=== PATIENT | female | born 1950 | race Caucasian/White ===

== ENCOUNTER 2018-07-09 13:31 | Inpatient (IN) | payer OTHER ==
[~2018-07-09] VITALS: Ht 152.4 cm; Wt 50.8 kg
--- NOTE | ~2018-07-09 | H ---
[facility] [place] [address] HISTORY AND PHYSICAL Name: LAVINIA PULLIAM Room #: 418-P [facility] IN M.R.#: [id number] Admission: 07/09/18 Attend Phys: Damien Awad MD Discharge: 07/10/18 Date of : 50 Report #: [id number] THIS REPORT FOR: //name// CC: Shaq Awad DATE OF SERVICE: 07/09/2018 CHIEF COMPLAINT: Severe abdominal pain, nausea, vomiting and diarrhea. HISTORY OF PRESENT ILLNESS: The patient came to my office reporting a severe abdominal pain episode that began in the morning of 07/05/2018. The pain was described as being in the entire epigastric area, and at the same time also across the entire lower pelvic/suprapubic area. The pain is described as severe and burning. The pain would be quite a bit worse after eating. She had multiple loose stools. There would be times when she would be vomiting as far as even having dry heaves. Her solution was to stop eating, she reports she has not had anything to eat since 07/05/2018. Her weight in the office is low enough at 115. Several years ago, it was 130. In 2009, it was 158. Today, she weighs 112. Today, she says "I am so weak, I can hardly keep ongoing." Over the last several days, she has stopped eating, the pain and symptoms have improved steadily. She has had similar episodes of pain over the last several years. She has seen a palliative nurse, Dr. Shaq Clay for this. A CT scanning of the abdomen at various times has been abnormal; on 01/17/2016, she had antral mural thickening and luminal narrowing for a 2.5-cm segment and distal ileum thickening to 8 mm and narrowing for a 20 cm long segment. EGD on 03/08/[address] Clay showed mild localized gastritis in the antrum with the findings of edema and erythema. The duodenum and the rest of the EGD procedure were normal. Colonoscopy on the same day showed multiple diverticula and several polyps were snared and removed. Multiple diverticula were seen. The mention of the absence or presence of hemorrhoids was not included in the report. The pathology of the antral biopsy showed reactive gastropathy with focal intestinal metaplasia and the 2 proximal ascending colon polyps were tubular adenomas and the 2 hepatic flexure polyps were 1 sessile serrated adenoma and 1 tubular adenoma. Her symptoms this past week are similar to the symptoms she had several years ago leading to these procedures. PAST MEDICAL HISTORY: History of vascular disease with 70% carotid artery stenosis. She recently had a complete heart evaluation by Dr. Dawson Beavers because of chest discomfort and shortness of breath that was entirely normal. She had a large right-sided ovarian cyst and a remnant ovary removed and her [address] [address] HISTORY AND PHYSICAL Name: HERACLIOLAVINIA Room #: 418-P [facility] IN M.R.#: [id number] Admission: 07/09/18 Attend Phys: Damien Awad MD Discharge: 07/10/18 Date of : 50 Report #: [id number] appendix removed by Dr. 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 An abdominal hernia with obstruction and a right-sided inguinal hernia were repaired with mesh on 09/08/2014 at [facility]. OTHER PAST MEDICAL HISTORY: Hyperlipidemia, hypertension, symptomatic COPD, 90% right carotid artery stenosis, past history of TIA. REVIEW OF SYSTEMS: Negative except for the HPI, and some of her hair seems to be falling out. CURRENT MEDICATIONS: Dr. Beavers recently started olmesartan 40 mg and chlorthalidone 12.5 mg (possibly 1/2 of a 25 mg tablet) daily for high blood pressure. She continues 5000 units of vitamin D and 81 mg aspirin daily. She takes pravastatin 40 mg 1/2 tablet daily for hyperlipidemia and citalopram 40 mg daily. She has recently stopped lisinopril 20 mg twice daily and amlodipine 10 mg 1/2 tablet daily. ALLERGIES: None known. PHYSICAL EXAMINATION: GENERAL: Shows a 68-year-old woman who appears severely underweight. VITAL SIGNS: She weighs 112 pounds. Her body mass index is 17. HEENT: She appears dehydrated with loss of body fat along the facial structures. The oropharynx is dry. Rest of the HEENT exam is unremarkable. NECK: There is no adenopathy, thyromegaly or masses in the neck and no carotid bruits are present. CHEST: The lungs are clear. CARDIOVASCULAR: S1 and S2 are normal. The rhythm is regular. ABDOMEN: There is no organomegaly or masses on the abdominal examination. There is easily palpated midepigastric area abdominal aortic pulsation, that is possibly enlarged, but it is difficult to tell because of the lack of fatty tissue makes palpating structures in the abdomen very easy. There are no bruits present. The liver and spleen are normal to exam. Palpation over the epigastric area reproduces her discomfort, as does palpation over the lower pelvic areas, the suprapubic area, right and left to the iliac crests on both sides is tender to palpation. Bowel sounds are normal. EXTREMITIES: There is no clubbing, cyanosis or edema in the extremities. ASSESSMENT: 1. Abdominal pain, triggered by meals. 2. Nausea and vomiting, even to the point of some dry heaves over the last several days. 3. Diarrhea. [facility] [address] [place] [address] HISTORY AND PHYSICAL Name: LAVINIA PULLIAM Edy Room #: 418-P [facility] IN Michael.Bandar.#: [id number] Admission: 07/09/18 Attend Phys: Damien Awad MD Discharge: 07/10/18 Date of : 50 Report #: [id number] 4. Weight loss, on top of an already low body mass index. 5. Advanced chronic obstructive pulmonary disease. 6. Hypertension with blood pressure today of 145/71. 7. Dehydration and volume depletion. 8. Other medical problems as mentioned in history and physical. PLAN: Because of her continuing abdominal pain despite not eating anything for the last several days and progressive weight loss, an urgent hospitalization is indicated. She will be seen in GI consultation. An urgent CT scan of the abdomen and pelvis will be performed. IV fluids will be started and she will be given intravenous proton pump inhibitor. Additional history is that 6 weeks ago, she had bright red blood from her rectum - this history was elicited at the end of her visit in the office today. The bright red blood from the rectum at the time of having bowel movements stopped and so, she did not report it to her palliative nurse and did not report to me until just now. This is another indication for an urgent hospitalization. By: [id number] Damien Awad MD /nt
--- NOTE | ~2018-07-09 | H ---
[facility] [place] [address] HISTORY AND PHYSICAL Name: LAVINIA PULLIAM Room #: 418-P ADM IN M.R.#: [id number] Admission: 07/09/18 Attend Phys: Damien Awad MD Discharge: Date of : 50 Report #: [id number] THIS REPORT FOR: //name// CC: Damien Awad DATE OF SERVICE: 07/09/2018 CHIEF COMPLAINT: Abdominal pain, vomiting, diarrhea, and weight loss. HISTORY OF PRESENT ILLNESS: The patient reports beginning epigastric and lower stomach/upper pelvic area burning pain on 07/05/2018. She has had multiple loose stools. She has been vomiting and not able to keep her meals down. She has bright red blood on the toilet paper. She is losing weight. These symptoms "it is starting up again!" She saw Dr. Shaq Clay on 05/07/2018 for similar episode of symptoms with intermittent vomiting and diarrhea postprandially. At that time, it had been going on intermittently for about 6 months. An EGD and colonoscopy on 03/08/2016 was reviewed that showed focal intestinal metaplasia, H. pylori negative and on colonoscopy, she had 2 tubular adenomas and one sessile serrated adenoma in the colon. An EGD and colonoscopy were to be scheduled, but have not been done as of yet. There was a history of "ulcer" being documented on a CT scan of the abdomen; 01/17/2016 CT of the abdomen at [facility] actually did show multiple abnormalities of the stomach, small bowel, and colon as well as short segmental circumferential mural thickening and luminal thickening in the gastric antrum with about 2.5 cm segment with 2 cm of mural thickness. Terminal ileitis was also seen with long segmental circumferential mural thickening that was 8 mm in wall thickness and over 20 cm in length. Complicating the issue is back pain with facet arthropathy at multiple lumbar levels. She was admitted to [facility] 12/15/2016 for a TIA with numbness of the arm and shoulder pain on the left and visual loss also. 70% carotid stenosis was present with an MRI and MRA being negative. Her blood pressure was over 100. PAST MEDICAL HISTORY: Hypertension, COPD, prolonged. She continues to smoke a pack of cigarettes per day. History of elevated hemoglobin and hematocrit, hyperlipidemia, mucinous cystadenoma of the right ovary was removed with bilateral salpingo-oophorectomy 05/27/[address] [facility]. Vaginal hysterectomy approximately 30 years earlier. Incarcerated umbilical hernia resected for obstruction at [facility] in 2014. Left cervical radiculopathy 04/2017, as well as amaurosis fugax and identification of colon polyps with tubular adenoma and serrated adenoma as well. A recent nuclear cardiac stress test 06/25/[address] [address] HISTORY AND PHYSICAL Name: LAVINIA PULLIAM Room #: 418-P [facility] IN M.R.#: [id number] Admission: 07/09/18 Attend Phys: Damien Awad MD Discharge: Date of : 50 Report #: [id number] was negative. He added olmesartan 40 mg and chlorthalidone 12.5 mg daily to control her blood pressure. CURRENT MEDICATIONS: Olmesartan 40 mg daily, chlorthalidone 12.5 mg daily, vitamin D, baby aspirin 1 daily, pravastatin 40 mg one-half daily, and citalopram 40 mg daily. ALLERGIES: None known. FAMILY HISTORY: Noncontributory. SOCIAL HISTORY: She continues to smoke a pack of cigarettes daily as she has for many years. 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 She is . She does not use alcohol. OBJECTIVE: GENERAL: Examination shows an elderly female, who appears ill and uncomfortable in my office. HEENT: Unremarkable. The oropharynx is minimally dry, but dry nevertheless. NECK: There is no adenopathy or thyromegaly or masses or bruits in the neck. LUNGS: Markedly diminished, but clear. CARDIOVASCULAR: S1, S2 are normal. ABDOMEN: Mildly tender in the epigastric area, but it is soft and bowel sounds are normal. There is a second level of tenderness above the anterior superior spines of the pelvis. EXTREMITIES: There is no clubbing, cyanosis or edema. No focal neurological deficits present. She is able to ambulate freely. VITAL SIGNS: Her blood pressure in the office was 145/71, pulse of 72. Her weight has dropped from 115 to 112. ASSESSMENT: 1. Recurrent cluster of abdominal pain symptoms including burning in the epigastric and in the upper pelvic area. 2. Hypertension. 3. Weight loss. 4. Chronic obstructive pulmonary disease. 5. History of elevated hemoglobin and hematocrit. 6. Hyperlipidemia. PLAN: The patient is admitted at this time for intravenous fluids to assist with rehydration and returning her strength. CT scanning will be performed as soon as possible. Especially, consultation with Dr. Cohen, a partner of Dr. Clay who has been her GI doctor at [facility] for the last several years. Consideration for an EGD and/or colonoscopy tomorrow. The patient may also need [facility] [address] [place] [address] HISTORY AND PHYSICAL Name: LAVINIA PULLIAM Room #: 418-P [facility] IN M.R.#: [id number] Admission: 07/09/18 Attend Phys: Damien Awad MD Discharge: Date of : 50 Report #: [id number] arteriograms of the intraabdominal vasculature as intestinal ischemia may give similar symptoms. By: [id number] Damien Awad MD /nt
--- NOTE | ~2018-07-09 | D ---
[facility] [place] [address] DISCHARGE SUMMARY Name: LAVINIA PULLIAM Room #: 418-P [facility] IN .R.#: [id number] Admission: 07/09/18 Attend Phys: Damien Awad MD Discharge: 07/10/18 Date of : 50 Report #: [id number] THIS REPORT FOR: //name// CC: Damien Awad DATE OF SERVICE: 07/10/2018 SUMMARY OF HISTORY AND PHYSICAL: The patient presented to the office with a 5-day history of severe abdominal pain, diarrhea and vomiting with a weight loss measured by the office scales. She presented clinically dehydrated. She required admission for further evaluation and therapy. SUMMARY OF HOSPITAL COURSE: She was admitted. She was started on intravenous pantoprazole twice daily. Overnight, her pain disappeared and she wanted to continue her workup at home. She was able to eat a meal in the hospital without recurrent pain. She describes similar 5-7 day long episodes of severe abdominal pain in the past, one was in the spring at which time a CT scan at [facility] showed thickening of the wall of the antrum and shortening and narrowing of the antral lumen, this was 2 cm in length. There was also thickening and narrowing of the distal ileum for a length of 20 cm on that study. An EGD performed soon thereafter showed antral thickening, erythema and edema, but the distal small bowel was normal on colonoscopy. The patient additionally offered the history of bright red blood coming from her rectum in the month of May 2018, just 6 weeks ago. The colonoscopy report from 2016 was silent on the absence or presence of hemorrhoids. It did comment that there were multiple diverticula present. The GI consulted and discussed her situation with her and offered outpatient EGD and colonoscopy in the near future if she wished to go home. In as much as her symptoms had resolved and she was now able to eat, she chose to have the procedures done in the near future as an outpatient. In the hospital, her blood pressure was minimally elevated from 148/60-175/72 for brief periods of time. Her creatinine was stable at 1.0. Her albumin was 3.7 and dropped to 3.2 with rehydration. White blood cell count was normal at 7.7 thousand, hemoglobin normal at 14.5 and 13.6 after rehydration. Erythrocyte sedimentation rate was 22 and C-reactive protein level was less than 2. CT scan of the abdomen and pelvis with contrast showed the liver to be mildly enlarged. The gallbladder was normal. There was some renal cortical thinning and scarring. The abdominal aorta noticed to demonstrate calcific plaquing. The distal thoracic aorta measured 2.5 cm. There was an infrarenal abdominal aortic aneurysm measuring 2.4 x 2.5 cm. The celiac artery and superior [address] [address] DISCHARGE SUMMARY Name: LAVINIA PULLIAM Room #: 418-P [facility] IN M.R.#: [id number] Admission: 07/09/18 Attend Phys: Damien Awad MD Discharge: 07/10/18 Date of : 50 Report #: [id number] mesenteric arteries were patent. The renal arteries were patent. Constipation was not present, and the bowel pattern was normal. CT scan of the chest without contrast showed moderate centrilobular emphysema. A small [place]. Coronary calcifications were also noted. DISCHARGE DIAGNOSES: 1. Severe abdominal pain/vomiting/diarrhea episode associated with weight loss and dehydration -- resolved, in the setting of IV proton pump inhibitor. 2. History of several episodes over the last several years without definitive diagnosis. 3. Small area of gastric antral edema and erythema found on EGD, 03/08/2016. 4. A 20 cm long area of distal ileum stenosis and thickening on CT in January 2016 at [facility]. 5. On a standard CT scan with contrast, the celiac artery and superior mesenteric were identified and were patent. 6. Small infrarenal abdominal aortic aneurysm measuring 2.4 x 2.5 cm. 7. Coronary artery calcifications are present. 8. Hypertension. 9. Volume depletion was corrected with IV fluids. 10. Carotid artery stenosis of 90% in one of the carotid arteries -- reference was identified in old records. 12. Mild chronic depression, on citalopram. 13. Hyperlipidemia. PLAN: 1. The patient is to continue her normal home medicines along with the recent new medications as follows: Citalopram 40 mg daily, pravastatin 40 mg 1/2 tablet daily, 81 mg aspirin daily, vitamin D 5000 units daily, olmesartan 40 mg daily and chlorthalidone 12.5 mg daily (1/2 of a 25 mg tablet, possibly the formulation). She is to start pantoprazole 40 mg once daily in the morning and a prescription was sent to [facility] at [facility] and [place], [place]. 2. She is to have an EGD and colonoscopy in the near future by Dr. Clay and his staff are to make the arrangements. 3. If episodes of pain continue, then perhaps a formal arteriogram of the abdominal vasculature might reveal areas of organs at risk for ischemic insult. ADDITIONAL DIAGNOSIS: Bright red blood from the rectum for 3 days running about 6 weeks ago. [facility] [address] [place] [address] DISCHARGE SUMMARY Name: LAVINIA PULLIAM Room #: 418-P DIS IN M.R.#: [id number] Admission: 07/09/18 Attend Phys: Damien Awad MD Discharge: 07/10/18 Date of : 50 Report #: [id number] She is to see me in my office in approximately 2-4 weeks. By: [id number] Damien Awad MD /rochelle
[~2018-07-09 13:31] MED LIST: CELEXA40 MG PO; COLACE100 MG PO; LISINOPRIL10 MG PO; LORTAB PO
[2018-07-09 13:50] VITALS: BP 175/72
[2018-07-09 15:46] LABS: HEMATOCRIT 41.7 % (37.0-47.0); HEMOGLOBIN 14.5 gm/dL (12.0-15.0); MCH 32.7 pg (26.0-34.0); MCHC 34.7 g/dL (28.0-37.0); MCV 94.2 fL (80.0-100.0); RBC 4.43 mil/uL (4.20-5.00); RDW 13.2 % (10.5-14.5); WBC 7.7 thou/uL (4.0-11.0)
[2018-07-09 16:01] LABS: ALBUMIN 3.7 g/dL (3.4-5.0); CALCIUM 9.7 mg/dL (8.5-10.1); POTASSIUM 4.3 mmol/L (3.5-5.1); TOTAL BILIRUBIN 0.6 mg/dL (<0.1-1.0); TOTAL PROTEIN 7.4 g/dL (6.4-8.2)
[2018-07-09 17:10] VITALS: BP 172/62
[2018-07-09 19:35] VITALS: BP 148/60
[2018-07-10 05:42] LABS: HEMATOCRIT 39.4 % (37.0-47.0); HEMOGLOBIN 13.6 gm/dL (12.0-15.0); MCH 32.6 pg (26.0-34.0); MCHC 34.6 g/dL (28.0-37.0); MCV 94.2 fL (80.0-100.0); RBC 4.18 mil/uL (4.20-5.00); RDW 13.2 % (10.5-14.5); WBC 6.9 thou/uL (4.0-11.0)
[2018-07-10 05:51] LABS: ALBUMIN 3.2 g/dL (3.4-5.0); CALCIUM 9.1 mg/dL (8.5-10.1); POTASSIUM 4.5 mmol/L (3.5-5.1); TOTAL BILIRUBIN 0.6 mg/dL (<0.1-1.0); TOTAL PROTEIN 6.6 g/dL (6.4-8.2)
[2018-07-10 07:43] VITALS: BP 165/87
[2018-07-10] MEDS ORDERED: CHLORTHALIDONE25 MG PO (17:29)
[2018-07-10] MEDS ORDERED: PRAVASTATIN SOD40 MG PO (17:29)
[2018-07-10] MEDS ORDERED: OLMESARTAN MEDO40 MG PO (17:29)
[2018-07-10] MEDS ORDERED: PROTONIX40 M1 PO (17:29)
[2018-07-10 17:56] VITALS: BP 165/87
== END 2018-07-10 18:38 | disposition home or self-care (01) | DRG 392 ==
LOC: 4E 13:31
PROVIDERS: Internal Medicine
DX: R10.9 Unspecified abdominal pain (principal); K62.5 Hemorrhage of anus and rectum; R11.2 Nausea with vomiting, unspecified; I25.10 Atherosclerotic heart disease of native coronary artery without angina pectoris; I10 Essential (primary) hypertension; E86.0 Dehydration; E78.5 Hyperlipidemia, unspecified; R63.4 Abnormal weight loss; K57.90 Diverticulosis of intestine, part unspecified, without perforation or abscess without bleeding; E78.00 Pure hypercholesterolemia, unspecified; R19.7 Diarrhea, unspecified; F32.9 Major depressive disorder, single episode, unspecified; I71.4 Abdominal aortic aneurysm, without rupture; E86.9 Volume depletion, unspecified; J44.9 Chronic obstructive pulmonary disease, unspecified; F17.210 Nicotine dependence, cigarettes, uncomplicated; Z90.722 Acquired absence of ovaries, bilateral; Z90.710 Acquired absence of both cervix and uterus; Z68.21 Body mass index [BMI] 21.0-21.9, adult
CPT/HCPCS: 10783